=== PATIENT | male | born 1970 | race Caucasian/White ===

== ENCOUNTER 2019-01-19 21:36 | Emergency (ER) | payer OTHER ==
[~2019-01-19] VITALS: Ht 165.1 cm; Wt 71.2 kg
[2019-01-19 21:48] VITALS: Ht 165.1 cm; Wt 71.2 kg
[2019-01-19 23:20] VITALS: BP 128/81
== END 2019-01-19 23:20 | disposition home or self-care (01) ==
LOC: ED 21:36
DX: S20.211A Contusion of right front wall of thorax, initial encounter (principal); V43.52XA Car driver injured in collision with other type car in traffic accident, initial encounter; Y93.I9 Activity, other involving external motion; Y92.413 State road as the place of occurrence of the external cause; Y99.8 Other external cause status
CPT/HCPCS: J1885